=== PATIENT | female | born 1935 | race Caucasian/White ===

== ENCOUNTER → 2019-01-24 12:44 | Outpatient (CLI) | payer MEDICARE, SELFPAY ==
[2019-01-07 11:16] VITALS: BMI 30.8
--- NOTE | 2019-01-24 13:01 | ECHOD_ITS ---
Reason For Study: CAD/ASHD Procedure This was a 2D Doppler, Color Flow transthoracic echocardiogram. Exam performed in department. Left Ventricle Mild concentric left ventricular hypertrophy. The estimated ejection fraction is 65 %. Stage 1 diastolic dysfunction. No regional wall motion abnormalities noted. Right Ventricle Normal size and thickness. Normal systolic function. Atria Normal left atrium. Normal right atrium. Normal atrial septum. Bubble contrast study negative for right to left interatrial shunt. Mitral Valve Mild diffuse mitral valve thickening. Moderate mitral annular calcification extending into the posterior leaflet. Tricuspid Valve Normal tricuspid valve. Mild (1+) tricuspid valve insufficiency. Right ventricular systolic pressure estimated to be 28 mmHg. Aortic Valve Trisinus/trileaflet aortic valve. Mild diffuse aortic valve thickening. Pulmonic Valve Normal pulmonic valve. Great Vessels Normal aortic root. Normal arch. Normal inferior vena cava. Inferior vena cava collapse with sniff. Pericardium/Pleural No pericardial effusion. Medication Performed a rapid injection of agitated mix of 9 cc saline and 1cc air to assess for atrial septal defect. MMode/2D Measurements & Calculations LVIDd: 4.3 cm IVSd: 1.4 cm Ao root diam: 3.2 cm LVIDs: 2.9 cm LVPWd: 1.2 cm RVDd: 2.5 cm FS: 33.5 % LAV(MOD-bp): 62.1 ml LA A4 area: 20.2 cm2 LA dimension(2D): 3.3 cm LAV(MOD-bp) Indexed: 34.5 ml/m2 LAV(MOD-sp2): 64.2 ml LAV(MOD-sp4): 57.2 ml RA A4 area: 14.6 cm2 Time Measurements MV dec time: 0.34 sec Doppler Measurements & Calculations MV E max shane: 100.1 cm/sec Lat Peak E' Shane: 3.0 cm/sec Med Peak E' Shane: 3.0 cm/sec MV A max shane: 147.9 cm/sec E/E' lat: 33.7 E/E' med: 33.0 MV E/A: 0.68 MV V2 max: 169.1 cm/sec Ao V2 max: 146.3 cm/sec LV V1 max: 88.9 cm/sec MV max P.4 mmHg Ao max P.6 mmHg LV V1 max P.2 mmHg MV V2 mean: 82.8 cm/sec MV mean P.3 mmHg MV V2 VTI: 42.9 cm PA V2 max: 97.7 cm/sec TR max shane: 233.2 cm/sec MV P1/2t-pr_phl: 71.5 msec TR max P.6 mmHg Interpretation Summary The estimated ejection fraction is 65 %. Stage 1 diastolic dysfunction. Bubble contrast study negative for right to left interatrial shunt. Mild (1+) tricuspid valve insufficiency. Right ventricular systolic pressure estimated to be 28 mmHg. Compared to echo report dated 06/05/2017, no appreciable changes noted. Ordering Physician: Omar Gutierrez Referring Physician: Andrew Danielle Performed By: Ann Mesa RDCS, RVT
== END ==
PROVIDERS: Referring Provider Internal Medicine Cardiovascular Disease; Visit Provider Internal Medicine Cardiovascular Disease
DX: I25.10 Atherosclerotic heart disease of native coronary artery without angina pectoris (principal)
CPT/HCPCS: 93306; A4216

== ENCOUNTER → 2019-02-06 12:48 | Outpatient (CLI) | payer MEDICARE, SELFPAY ==
[2019-01-07 11:16] VITALS: BMI 30.8
--- NOTE | 2019-02-06 12:53 | STE_ITS ---
Reason For Study: CAD/ASHD Stress Results Maximum Predicted HR: 139 bpm Target HR: 118 bpm % Maximum Predicted HR: 96 % DurationHeart Rate Stage (mm:ss) (bpm) BP Comment BASELINE 80 170/82 STAGE 1 3:00 116 184/88INCREASED SOB STAGE 2 1:30 133 / SOB RECOVERY 108 170/80 Stress Duration: 4:30 mm:ss Maximum Stress HR: 133 bpm Baseline Echocardiogram Findings The estimated ejection fraction is 65 %. Stress Echo Wall motion Data Resting WM Intermediate WM Stress WM Resting Wall Motion Wall Motion Stress No regional wall motion No regional wall motion abnormalities noted. abnormalities noted. EKG Data The baseline ECG displays normal sinus rhythm. The patient exercised according to the regular Kush protocol for a total duration of 4:30. The maximum heart rate attained was 133 beats per minute. This was 95% of maximum predicted heart rate. The patient exercised into stage 2 of the Kush protocol. During stress, there were no ST or T wave changes noted to suggest ischemia. No clinical angina was noted. No arrhythmias noted. Interpretation Summary The estimated ejection fraction is 65 %. Normal, adequate treadmill echocardiogram. Negative for ischemia by EKG and echocardiographic criteria. No anginal symptoms noted. No arrhythmias noted. Baseline hypertension with mild hypertensive blood pressure response to exercise. Test terminated due to the attainment of target heart rate and dyspnea. Average exercise capacity for age. Final LVEF is 75%. No complications. Ordering Physician: Omar Gutierrez MD Referring Physician: Omar Gutierrez Performed By: Corrina Olson, ILA, RVT
== END ==
PROVIDERS: Referring Provider Internal Medicine Cardiovascular Disease; Visit Provider Internal Medicine Cardiovascular Disease
DX: I25.10 Atherosclerotic heart disease of native coronary artery without angina pectoris (principal); E78.5 Hyperlipidemia, unspecified; I10 Essential (primary) hypertension; I45.10 Unspecified right bundle-branch block; Z95.5 Presence of coronary angioplasty implant and graft
CPT/HCPCS: 93017; 93350